=== PATIENT | female | born 2000 | race Caucasian/White ===

== ENCOUNTER 2023-05-24 13:44 | Emergency (ER) | payer OTHER ==
[~2023-05-24] VITALS: Ht 157.5 cm; Wt 74.8 kg
[2023-05-24] MEDS ORDERED: KETOROLAC INJ 30 MG/ML VIAL IM STA (14:15)
[2023-05-24] MEDS ORDERED: KETOROLAC INJ 15 MG/ML VIAL IVP STA (14:19)
[2023-05-24 14:24] LABS: BILIRUBIN,URINE NEGATIVE (NEGATIVE); COLOR,URINE YELLOW; GLUCOSE, URINE (UA) NEGATIVE (NEGATIVE); KETONES,URINE NEGATIVE (NEGATIVE); LEUKOCYTE ESTERASE ,URINE NEGATIVE (NEGATIVE); NITRITE,URINE NEGATIVE (NEGATIVE); PROTEIN,URINE NEGATIVE (NEGATIVE)
[2023-05-24 14:29] LABS: BASOPHILS # (AUTO) 0.1 10^3/uL (0.0-0.1); BASOPHILS % (AUTO) 1 % (0-10); EOSINOPHILS # (AUTO) 0.1 10^3/uL (0.0-0.3); EOSINOPHILS % (AUTO) 1 % (0-10); HEMATOCRIT 43 % (35-52); HEMOGLOBIN 14.2 g/dL (11.5-16.0); LYMPHOCYTES # (AUTO) 2.6 10^3/uL (1.0-4.0); LYMPHOCYTES % (AUTO) 26 % (12-44); MEAN CORPUSCULAR HEMOGLOBIN 30 pg (25-34); MEAN CORPUSCULAR HGB CONC 33 g/dL (32-36); MEAN CORPUSCULAR VOLUME 89 fL (80-99); MEAN PLATELET VOLUME 8.8 fL (9.0-12.2); MONOCYTES # (AUTO) 0.7 10^3/uL (0.0-1.0); MONOCYTES % (AUTO) 7 % (0-12); NEUTROPHILS # (AUTO) 6.5 10^3/uL (1.8-7.8); NEUTROPHILS % (AUTO) 65 % (42-75); PLATELET COUNT 325 10^3/uL (130-400)
[2023-05-24 14:29] LABS: CLARITY,URINE CLOUDY; RBC,URINE TNTC /HPF
[2023-05-24] MEDS ORDERED: NS 100 ML (IVPB) BAG IV ONE (14:30)
[2023-05-24] MEDS ORDERED: HOLD METFORMIN - RECEIVED CONTRAST 20 ML VIAL IV SCH (14:30)
[2023-05-24] MEDS ORDERED: IOHEXOL 350 MG/ML 100 ML (OMNIPAQUE 350) VIAL IV ONE (14:30)
[2023-05-24 14:45] LABS: BUN/CREATININE RATIO 23; CARBON DIOXIDE 23 MMOL/L (21-32); CHLORIDE 104 MMOL/L (98-107); CREATININE SERUM 0.73 MG/DL (0.60-1.30); GFR ESTIMATED 118; POTASSIUM 3.6 MMOL/L (3.6-5.0); SODIUM 139 MMOL/L (135-145)
[2023-05-24 14:46] LABS: ALANINE AMINOTRANSFERASE 11 U/L (0-55); ALBUMIN 4.8 GM/DL (3.2-4.5); ALKALINE PHOSPHATASE 105 U/L (40-136); BILIRUBIN,TOTAL 0.3 MG/DL (0.1-1.0); GLUCOSE 112 MG/DL (70-105); TOTAL PROTEIN 8.1 GM/DL (6.4-8.2)
[2023-05-24 14:48] LABS: INR 0.9 (0.8-1.4); PROTHROMBIN TIME PATIENT 12.3 SEC (12.2-14.7)
--- NOTE | 2023-05-24 15:10 | ED Fall/Injury ---
General Chief Complaint: Back Problems Stated Complaint: BACK/HEAD INJ; FALL Nursing Triage Note: PT TO ROOM [facility]SOF VIA W/C WITH C/O RIGHT HIP PAIN, LOWER BACK PAIN, HEADACHE, DIZZYNESS. PT REPORTS FALLING OFF A HORSE X1.5 HOURS AGO. PT REPORTS LOC. Source: patient History of Present Illness Date Seen by Provider: May 24, 2023 Time Seen by Provider: 13:50 Initial Comments 22-year-old female presenting with complaints of being bucked off of her's approximately 90 minutes prior to arrival. She states that she hit the back of her head and was knocked out for a few seconds. She now feels dizzy and lightheaded. She denies any change in vision, nausea, vomiting, drainage from her ears or nose. She has not taken anything for pain. She also has abrasions to the right posterior shoulder and upper arm as well as pain along the right posterior side of her chest and right flank into her posterior right hip and pelvis. She is able to walk and bear weight but has increased pain with movement. She denies abdominal pain, shortness of breath, cough. She is finishing a course of antibiotics for right ear infection. She states that since hitting her head she feels like the fluid has drained out of her right ear and she can hear better. She is currently on her menstrual cycle. Occurred: this morning Severity: moderate Injuries/Pain Location: head, neck, upper extremity, chest, abdomen, back, pelvis Context: other (bucked off of horse) Loss of Consciousness: brief (seconds) Modifying Factors: Worse With Movement Associated Symptoms (Fall): No Abdominal Pain; Chest Pain (right posterior chest); No Confusion; Dizziness, Headache, Lightheadedness; No Muscle Spasms, No Nausea/Vomiting; Neck Pain (feels stiff); No Ringing in Ears, No Seizures, No Shortness of Air, No Slurred Speech; Trouble Walking (due to pain in right hip); No Vision Changes Allergies and Home Medications Allergies Coded Allergies: No Known Drug Allergies (Unverified , 05/24/23) Patient Home Medication List Home Medication List Reviewed: Yes Review of Systems Review of Systems Constitutional: see HPI; No chills, No fever Eyes: Denies Blurred Vision, Denies Photophobia, Denies Vision Changes Ears, Nose, Mouth, Throat: denies ear pain, denies ear discharge, denies nose pain, denies nose discharge, denies epistaxis Respiratory: No cough, No short of breath Cardiovascular: see HPI Gastrointestinal: see HPI Genitourinary: No dysuria : No LMP: May 22, 2023 Musculoskeletal: see HPI Skin: change in color (superficial abrasions to right posterior shoulder) Psychiatric/Neurological: Headache; Denies Numbness, Denies Paresthesia, Denies Weakness Past Wymjequ-Oneilf-Aotcle Hx Patient Social History Tobacco Use?: Yes Tobacco type used: Cigarettes Smoking Status: Light Tobacco Smoker Use of E-Cig and/or Vaping dev: No Use of E-Cig and/or Vaping Ken: Never a User Substance use?: Yes Substance type: Marijuana Substance frequency: Couple times a week Alcohol Use?: Yes Alcohol Frequency: Couple times a week Pt feels they are or have been: No Physical Exam Vital Signs Vital Signs - First Documented 05/24/23 05/24/23 13:57 15:55 Temp 37.0 Pulse 105 Resp 20 B/P (MAP) 129/86 (100) Pulse Ox 100 O2 Delivery Room Air Capillary Refill : Less Than 3 Seconds Height, Weight, BMI Height: '" Weight: lbs. oz. kg; 30.00 BMI Method: General Appearance: WD/WN, no apparent distress HEENT: PERRL/EOMI, pharynx normal; No photophobia; other (Negative lazo sign, negative raccoon sign, no CSF otorrhea, no CSF rhinorrhea, no hemotympanums. She has faint pinkness to bilateral TMs but I did not appreciate any acute effusion or hemorrhage.) Neck: full range of motion, supple; No tender midline Cardiovascular: normal peripheral pulses, regular rate, rhythm Respiratory: No chest non-tender (Mild tenderness to the right posterior chest along the ribs. 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, no motor/sensory deficits, alert, normal mood/affect, oriented x 3 Skin: warm/dry, other (Superficial abrasions to the right posterior arm) Rick Coma Score Best Eye Response: (4) Open Spontaneously Best Verbal Response: (5) Oriented Best Motor Response: (6) Obeys Commands Romeo Total: 15 Progress/Results/Core Measures Results/Orders Lab Results Laboratory Tests Test 05/24/23 14:22 05/24/23 14:26 Range/Units Urine Color YELLOW Urine Clarity CLOUDY Urine pH 6.0 5-9 Urine Specific [place] 1.025 H 1.016-1.022 Urine Protein NEGATIVE NEGATIVE Urine Glucose (UA) NEGATIVE NEGATIVE Urine Ketones NEGATIVE NEGATIVE Urine Nitrite NEGATIVE NEGATIVE Urine Bilirubin NEGATIVE NEGATIVE Urine Urobilinogen 0.2 < = 1.0 MG/DL Urine Leukocyte Esterase NEGATIVE NEGATIVE Urine RBC (Auto) 3+ H NEGATIVE Urine RBC TNTC H /HPF Urine WBC /HPF Urine Crystals NONE /LPF Urine Bacteria /HPF Urine Casts NONE /LPF Urine Mucus NEGATIVE /LPF Urine Culture Indicated NO White Blood Count 10.0 4.3-11.0 10^3/uL Red Blood Count 4.78 3.80-5.11 10^6/uL Hemoglobin 14.2 11.5-16.0 g/dL Hematocrit 43 35-52 % Mean Corpuscular Volume 89 80-99 fL Mean Corpuscular Hemoglobin 30 25-34 pg Mean Corpuscular Hemoglobin Concent 33 32-36 g/dL Red Cell Distribution Width 11.9 10.0-14.5 % Platelet Count 325 130-400 10^3/uL Mean Platelet Volume 8.8 L 9.0-12.2 fL Immature Granulocyte % (Auto) 0 % Neutrophils (%) (Auto) 65 42-75 % Lymphocytes (%) (Auto) 26 12-44 % Monocytes (%) (Auto) 7 0-12 % Eosinophils (%) (Auto) 1 0-10 % Basophils (%) (Auto) 1 0-10 % Neutrophils # (Auto) 6.5 1.8-7.8 10^3/uL Lymphocytes # (Auto) 2.6 1.0-4.0 10^3/uL Monocytes # (Auto) 0.7 0.0-1.0 10^3/uL Eosinophils # (Auto) 0.1 0.0-0.3 10^3/uL Basophils # (Auto) 0.1 0.0-0.1 10^3/uL Immature Granulocyte # (Auto) 0.0 0.0-0.1 10^3/uL Prothrombin Time 12.3 12.2-14.7 SEC INR Comment 0.9 0.8-1.4 Activated Partial Thromboplast Time 28 24-35 SEC Sodium Level 139 135-145 MMOL/L Potassium Level 3.6 3.6-5.0 MMOL/L Chloride Level 104 98-107 MMOL/L Carbon Dioxide Level 23 21-32 MMOL/L Anion Gap 12 5-14 MMOL/L Blood Urea Nitrogen 17 7-18 MG/DL Creatinine 0.73 0.60-1.30 MG/DL Estimat Glomerular Filtration Rate 118 BUN/Creatinine Ratio 23 Glucose Level 112 H 70-105 MG/DL Calcium Level 10.0 8.5-10.1 MG/DL Corrected Calcium 8.5-10.1 MG/DL Total Bilirubin 0.3 0.1-1.0 MG/DL Aspartate Amino Transf (AST/SGOT) 17 5-34 U/L Alanine Aminotransferase (ALT/SGPT) 11 0-55 U/L Alkaline Phosphatase 105 40-136 U/L Total Protein 8.1 6.4-8.2 GM/DL Albumin 4.8 H 3.2-4.5 GM/DL My Orders Orders - JUAN RONQUILLO MD Ua Culture If Indicated (05/24/23 13:53) Urine Bedside (05/24/23 13:53) Ct Head/Cervical Spine Wo (05/24/23 14:16) Ct Chest/Abdomen/Pelvis W (05/24/23 14:16) Comprehensive Metabolic Panel (05/24/23 14:16) Ed Iv/Invasive Line Start (05/24/23 14:16) Cbc With Automated Diff (05/24/23 14:16) Protime With Inr (05/24/23 14:16) Partial Thromboplastin Time (05/24/23 14:16) Ketorolac Injection (Ketorolac Injection (05/24/23 14:19) Iohexol Injection (Omnipaque 350 Mg/Ml 1 (05/24/23 14:30) Received Contrast (Hold Metformin- Contr (05/24/23 14:30) Ns (Ivpb) 100 Ml (Sodium Chloride 0.9% 1 (05/24/23 14:30) Medications Given in ED Current Medications Medications Dose Ordered Sig/Maribel Route Start Time Stop Time Status Last Admin Dose Admin Iohexol 100 ml ONCE ONCE IV 05/24/23 14:30 05/24/23 14:31 DC 05/24/23 15:31 80 ML Sodium Chloride 100 ml ONCE ONCE IV 05/24/23 14:30 05/24/23 14:31 DC 05/24/23 15:31 80 ML Vital Signs/I&O 05/24/23 05/24/23 13:57 15:55 Temp 37.0 36.8 Pulse 105 84 Resp 20 17 B/P (MAP) 129/86 (100) 122/68 Pulse Ox 100 O2 Delivery Room Air Room Air Blood Pressure Mean: 100 Progress Progress Note #1: Progress Note Potential diagnosis of skull fracture, intracranial hemorrhage, concussion, cervical spine fracture, rib fracture, thoracic spine fracture, thoracic spine strain, lumbar spine strain, contusion right hip, pelvis fracture. Establish peripheral IV access and send basic labs of complete blood count, comprehensive metabolic profile, coags. Obtain urinalysis and bedside test. CT scan of the head and cervical spine without IV contrast looking for fractures or intracranial hemorrhage, CT scan of the chest abdomen and pelvis with IV contrast looking for internal hemorrhage or fractures. Administer Toradol 15 mg IV for pain and inflammation. Progress Note #2: Progress Note Complete blood count does not show any acute elevation of her white blood cell count and her anemia. Her comprehensive metabolic profile did not show any acute electrolyte abnormality. Urinalysis was concentrated with a specific gravity of 1.025 but she was not having signs of UTI. Her CT scan of the head and cervical spine were negative for intracranial hemorrhage or fractures. CT scan of the chest abdomen pelvis showed contusion but no fractures or internal bleeding. Reassured patient and counseled on findings and results. Encourage fluids and rest. She states her pain was starting to improve from the treatment here in the ED. Encouraged to take ibuprofen and/or Aleve as well as acetaminophen to help with her pain. Use ice 15 to 20 minutes every few hours as needed for pain and inflammation. After 36 to 48 hours she could add in heat. She did not want to take a muscle relaxer or narcotic pain medicine. She wanted to try the [id number] medicines first. Diagnostic Imaging Diagonstic Imaging: CT Plain Films/CT/US/NM/MRI: c-spine, head Comments [facility]. [place], [place] NAME: CHAYO SALVADOR [facility] REC#: [id number] PT STATUS: REG ER : 2000 PHYSICIAN: JUAN RONQUILLO MD ADMIT DATE: 05/24/23/ER FS Signed Date of Exam:05/24/23 CT HEAD/CERVICAL SPINE WO PROCEDURE: CT head and CT cervical spine without contrast. TECHNIQUE: Multiple contiguous axial images were obtained through the brain and cervical spine without the use of intravenous contrast. Sagittal and coronal reformations through the cervical spine were then performed. Auto Exposure Controls were utilized during the CT exam to meet ALARA standards for radiation dose reduction. INDICATION: Patient fell from horse with head and neck injury, dizziness and loss of consciousness. COMPARISON: None. CT HEAD: There is no hemorrhage, hydrocephalus, cerebral edema, mass, mass effect or evidence for elevated intracranial pressures. There is no hemosinus. There is no pneumocephalus. No acute calvarial pathology. This patient has a low-density air-fluid level in the left maxillary sinus. There is extensive bilateral maxillary sinus membrane thickening. There is near complete opacification of the ethmoid air cells and sphenoid sinuses as well as membrane disease within the hypoplastic frontal sinuses. The mastoid air cells and middle ear cavities clear. No facial or calvarial fracture. CT CERVICAL SPINE: Body heights are normal. The alignment within normal limits. No facet dislocation. No fracture. No paraspinal hemorrhage. No substantial canal stenosis. Central skull base intact. Craniocervical relationship normal. No deformity to the hyoid or tracheal cartilage. IMPRESSION: 1. CT head: No hemorrhage, fracture or posttraumatic sequelae. 2. Severe paranasal sinusitis. 3. CT cervical spine: Negative. Dictated by: Dictated on workstation # [id number] Dict: 05/24/23 1459 Trans: 05/24/[address] [facility] [id number] Interpreted by: TRACI CUADRA Electronically signed by: TRACI CUADRA 05/24/23 1525 Reviewed: Reviewed by Tn Diagonstic Imaging: CT Plain Films/CT/US/NM/MRI: chest, abdomen, pelvis Comments [facility] [place], [place] NAME: CHAYO SALVADOR [facility] REC#: [id number] PT STATUS: REG ER : 2000 PHYSICIAN: JUAN RONQUILLO MD ADMIT DATE: 05/24/23/ER FS Signed Date of Exam:05/24/23 CT CHEST/ABDOMEN/PELVIS W Procedure: CT chest, abdomen, and pelvis with contrast. Technique: Multiple contiguous axial images were obtained through the chest, abdomen, and pelvis after the administration of intravenous contrast. Auto Exposure Controls were utilized during the CT exam to meet ALARA standards for radiation dose reduction. Date: May 24, 2023. Indication: 22-year-old female, fall off horse. Right hip and back pain. Comparison: None. Findings: There is no identified pulmonary nodule or lung mass. There is no focal airspace consolidation. There is no pneumothorax. There is no pleural effusion. The central airways are patent. The heart is not enlarged. There is no pericardial effusion. There is no evidence of an acute aortic injury. There is no mediastinal, hilar or axillary lymph node which meets CT size criteria for adenopathy. The liver is unremarkable in size and contour. There is no identified liver laceration. There is no abnormal fluid immediately adjacent to the liver. The main, right and left portal veins are patent. The gallbladder is unremarkable. There is no biliary ductal dilation. The main pancreatic duct is not abnormally dilated. Unremarkable appearance of the pancreatic parenchyma. The spleen is normal in size. There is no identified splenic injury. The adrenal glands are unremarkable. Unremarkable evaluation of the renal parenchyma. The urinary collecting systems are not distended. The urinary bladder is grossly unremarkable. There is a cylindrical object within the vagina which may reflect tampon. Recommend correlation. The intestinal tract is not distended. There is no free intraperitoneal air. There is no drainable fluid collection. Is no free fluid in the abdomen or pelvis. There is no identified acute bony abnormality. Impression: No identified acute abnormality at the level of the chest, abdomen or pelvis. Dictated by: Dictated on workstation # [id number] Dict: 05/24/23 1508 Trans: 05/24/[address] [facility] [phone] Interpreted by: RODO VIERA MD Electronically signed by: RODO VIERA MD 05/24/23 1524 Reviewed: Reviewed by Me Departure Impression Primary Impression: Closed head injury with brief loss of consciousness Additional Impressions: Animal-rider injured by fall from or being thrown from horse in noncollision accident, initial encounter Right flank pain Contusion of right hip, initial encounter Disposition: 01 HOME, SELF-CARE Condition: Improved Departure-Patient Inst. Decision time for Depature: 15:49 Referrals: NO,LOCAL PHYSICIAN (PCP/Family) Primary Care Physician Patient Instructions: Flank Pain ED, Minor Head Injury, Adult ED, Concussion, Adult ED Add. Discharge Instructions: Consider using ice 15 to 20 minutes every few hours as needed to help with pain and inflammation in the first 24 to 48 hours. After that you could alternate to red and heat. You could try using some [id number]-iht-[id number] lidocaine patches to help with point s pecific areas of pain such as Salonpas is a brand name of one of the lidocaine patches. You can take ibuprofen 600 mg every 6-8 hours as needed for pain and inflammation. You can also take acetaminophen 650 mg every 6 hours as needed for pain. Stay well-hydrated and drink plenty of fluids to help flush out inflammation. Try to get plenty of rest. Check back with primary care provider if having continued concerns and symptoms. All discharge instructions reviewed with patient and/or family. Voiced under standing. JUAN RONQUILLO MD May 24, 2023 15:10
--- NOTE | 2023-05-24 15:22 | Diagnostic Imaging Report ---
Procedure: CT chest, abdomen, and pelvis with contrast. Technique: Multiple contiguous axial images were obtained through the chest, abdomen, and pelvis after the administration of intravenous contrast. Auto Exposure Controls were utilized during the CT exam to meet ALARA standards for radiation dose reduction. Date: May 24, 2023. Indication: 22-year-old female, fall off horse. Right hip and back pain. Comparison: None. Findings: There is no identified pulmonary nodule or lung mass. There is no focal airspace consolidation. There is no pneumothorax. There is no pleural effusion. The central airways are patent. The heart is not enlarged. There is no pericardial effusion. There is no evidence of an acute aortic injury. There is no mediastinal, hilar or axillary lymph node which meets CT size criteria for adenopathy. The liver is unremarkable in size and contour. There is no identified liver laceration. There is no abnormal fluid immediately adjacent to the liver. The main, right and left portal veins are patent. The gallbladder is unremarkable. There is no biliary ductal dilation. The main pancreatic duct is not abnormally dilated. Unremarkable appearance of the pancreatic parenchyma. The spleen is normal in size. There is no identified splenic injury. The adrenal glands are unremarkable. Unremarkable evaluation of the renal parenchyma. The urinary collecting systems are not distended. The urinary bladder is grossly unremarkable. There is a cylindrical object within the vagina which may reflect tampon. Recommend correlation. The intestinal tract is not distended. There is no free intraperitoneal air. There is no drainable fluid collection. Is no free fluid in the abdomen or pelvis. There is no identified acute bony abnormality. Impression: No identified acute abnormality at the level of the chest, abdomen or pelvis. Dictated by: Dictated on workstation # [id number]
[2023-05-24 15:55] VITALS: BP 122/68
== END 2023-05-24 15:55 | disposition home or self-care (01) ==
LOC: ER FS 13:49
DX: S06.9X9A Unspecified intracranial injury with loss of consciousness of unspecified duration, initial encounter (principal); S70.01XA Contusion of right hip, initial encounter; S40.811A Abrasion of right upper arm, initial encounter; R10.9 Unspecified abdominal pain; F17.210 Nicotine dependence, cigarettes, uncomplicated; V80.010A Animal-rider injured by fall from or being thrown from horse in noncollision accident, initial encounter; Z28.310 Unvaccinated for COVID-19
CPT/HCPCS: 36415; 70450; 71260; 72125; 74177; 80053; 81000; 84703; 85025; 85610; 85730; Q9967